=== PATIENT | female | born 1940 ===

== ENCOUNTER 2020-09-24 14:41 | Outpatient (REF) | payer SELFPAY ==
--- NOTE | ~2020-09-24 | XR_ITS ---
EXAMINATION: XR FOOT, RIGHT CLINICAL INFORMATION: Question bunion. COMPARISON: None TECHNIQUE: AP, lateral, and oblique views of the right foot. FINDINGS: There is bony demineralization. There is a hallux valgus configuration. There is a large bunion of the first metatarsal head. There is moderate osteoarthritic change of the first metatarsophalangeal joint. There is a hammertoe deformity of the second toe, which obliquely overlaps the great toe dorsally. No fracture, dislocation or right ankle joint effusion is seen. Boehler's angle is normal in there are small posterior and plantar calcaneal spurs. There are degenerative changes of the midfoot. The soft tissue planes are unremarkable, without foreign body or gas. XR/XR foot RT min 3V IMPRESSION: 1. There is a hallux valgus configuration. A large bunion is seen of the right first metatarsal head. 2. A hammertoe deformity is seen of the right second toe, which obliquely overlaps the great toe dorsally. 3. No fracture, dislocation or right ankle joint effusion is seen. 4. There are small calcaneal spurs. 5. There are degenerative changes of the midfoot. 6. There is bony demineralization.
--- NOTE | ~2020-09-24 | XR_ITS ---
EXAMINATION: XR KNEE, LEFT CLINICAL INFORMATION: Pain status-post fall. COMPARISON: None TECHNIQUE: AP, lateral, tunnel, and sunrise views of the left knee. FINDINGS: There is mild bony demineralization. The lateral and medial joint space compartments are well-maintained. There is mild narrowing of the patellofemoral compartment, most pronounced laterally. No fracture or dislocation is seen. There is minimal peripheral osteophyte formation of the lateral and medial joint space compartments, and mild peripheral osteophyte formation of the patellofemoral compartment. There is a small joint effusion. No foreign body is seen. XR/XR knee LT 4V IMPRESSION: 1. There is very mild tricompartment osteoarthritic change, most pronounced of the patellofemoral compartment. 2. There is a small joint effusion.
== END 2020-09-24 14:42 | disposition home or self-care (01) ==
LOC: HO.XRAY 14:41
PROVIDERS: PCP Internal Medicine; Visit Provider Internal Medicine
DX: M25.562 Pain in left knee (principal); M21.612 Bunion of left foot; Z91.81 History of falling
CPT/HCPCS: 73564; 73630

== ENCOUNTER 2020-12-16 13:58 | Outpatient (REF) | payer MEDICARE, SELFPAY ==
--- NOTE | ~2020-12-16 | MM_ITS ---
EXAMINATION: MM DIAGNOSTIC DIGITAL BREAST TOMOSYNTHESIS, BILATERAL CLINICAL INFORMATION: Due for yearly. 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 COMPARISON: Mammography: 11/16/2019 (needle localization); 11/01/2019, 10/30/2019, 10/19/2019 (baseline). TECHNIQUE: Digital breast tomosynthesis is performed in both the craniocaudal and mediolateral oblique views along with computer-aided detection (CAD). Synthesized 2D images are generated from the tomosynthesis. Additional magnification right CC and magnification right ML views are obtained. FINDINGS: There are scattered areas of fibroglandular density (ACR BI-RADS breast composition Category b). There are post therapy changes right breast with mild reduced breast size and scarring upper outer quadrant. Small oil cyst is present near the edge of the scar medial side on CC view. The left breast is stable from prior exam. There is no developing density or interval mass or architectural abnormality. No abnormal calcifications. Results are provided to the patient at time of visit by the technologist. MM/MM tomosynthesis diagnostic BI IMPRESSION: No mammographic evidence of malignancy. Post therapy changes right breast. ASSESSMENT: BI-RADS 2: Benign RECOMMENDATION: Annual bilateral mammography. This patient's information was entered into a reminder system with a target due date for their next mammogram.
== END 2020-12-16 13:59 | disposition home or self-care (01) ==
LOC: HO.MAMMO 13:58
PROVIDERS: Visit Provider Surgery
DX: C50.411 Malignant neoplasm of upper-outer quadrant of right female breast (principal)
CPT/HCPCS: 77062; 77066

== ENCOUNTER 2020-12-25 11:02 | Outpatient (REF) | payer MEDICARE, SELFPAY ==
[2020-12-25 13:34] LABS: MANUAL DIFF FLAG NO
[2020-12-25 13:44] LABS: Basophils Percent Auto 0.4 % (0-2); Eosinophils Absolute Auto 0.1 X10*3/uL (0.0-0.4); Eosinophils Percent Auto 2.8 % (0-4); Hematocrit 37.4 % (37-47); Hemoglobin 12.3 g/dl (12.0-16.0); Imm Gran Abs Auto 0.01 X10*3/uL (0.00-0.03); Imm Gran Pct Auto 0.2 % (0.0-0.4); Lymphocytes Absolute Auto 1.8 X10*3/uL (1.2-4.9); Lymphocytes Percent Auto 36.9 % (20-40); Mean Corpuscular HGB Conc 32.9 g/dl (31.0-35.0); Mean Corpuscular Hemoglobin 31.7 pg (27.0-33.0); Mean Corpuscular Volume 96.4 fL (80-98); Mean Platelet Volume 11.7 fL (9.4-12.3); Monocytes Absolute Auto 0.6 X10*3/uL (0.1-1.2); Monocytes Percent Auto 11.6 % (2-11); Neutrophils Absolute Auto 2.4 X10*3/uL (2.0-8.3); Neutrophils Percent Auto 48.1 % (45-73); Platelet Count 179 X10*3/uL (160-400); Red Blood Count 3.88 X10*6/uL (4.20-5.50); Red Cell Distribution Width 14.1 % (11.0-16.0)
[2020-12-25 14:21] LABS: Alanine Aminotransferase 15 U/L (0-31); Albumin Level 4.1 g/dL (3.5-5.0); Alkaline Phosphatase 71 U/L (39-117); Anion Gap 9 (12-20); Aspartate Amino Transferase 28 U/L (5-31); Bilirubin Total 0.7 mg/dL (0.0-1.0); Blood Urea Nitrogen 14 mg/dL (9-16); Calcium 9.8 mg/dL (8.4-10.2); Carbon Dioxide 28 mmol/L (22-29); Chloride 107 mmol/L (96-108); Estimated Glomerular Filt Rate > 60; Glucose Random 87 mg/dL (60-115); Potassium 4.8 mmol/L (3.3-5.1); Sodium 139 mmol/L (135-145); Total Protein 8.2 g/dL (6.5-8.0)
[2020-12-25 14:41] LABS: Vitamin D 25-OH Total 19.7 ng/mL (>30)
== END 2020-12-25 11:03 | disposition home or self-care (01) ==
LOC: HO.10HDL 11:02
PROVIDERS: Visit Provider Internal Medicine
DX: Z13.89 Encounter for screening for other disorder (principal)
CPT/HCPCS: 36415; 80053; 82306; 85025

== ENCOUNTER → 2021-03-12 11:06 | Outpatient (BNVA) | payer MEDICARE, SELFPAY | PROVIDERS: Visit Provider Obstetrics & Gynecology | DX: N81.4 Uterovaginal prolapse, unspecified (principal) | CPT/HCPCS: 99202 ==

== ENCOUNTER → 2021-04-09 08:29 | Outpatient (BNVA) | payer MEDICARE, SELFPAY | PROVIDERS: Visit Provider Obstetrics & Gynecology | DX: N81.4 Uterovaginal prolapse, unspecified (principal) | CPT/HCPCS: 57160; 99212 ==

== ENCOUNTER → 2021-04-16 11:21 | Outpatient (BNVA) | payer MEDICARE, SELFPAY | PROVIDERS: Visit Provider Obstetrics & Gynecology | DX: N81.4 Uterovaginal prolapse, unspecified (principal) | CPT/HCPCS: 99212 ==

== ENCOUNTER 2021-12-31 10:14 | Outpatient (REF) | payer MEDICARE, SELFPAY ==
--- NOTE | ~2021-12-31 | MM_ITS ---
EXAMINATION: MM DIAGNOSTIC DIGITAL BREAST TOMOSYNTHESIS, BILATERAL CLINICAL INFORMATION: Status post right breast lumpectomy in 2020. COMPARISON: Mammography: 12/16/2020 and studies dating back to 10/19/2019. TECHNIQUE: Digital breast tomosynthesis is performed in both the craniocaudal and mediolateral oblique views along with computer-aided detection (CAD). Synthesized 2D images are generated from the tomosynthesis. Additional spot magnification views of the right breast in craniocaudal and 90 degree mediolateral views performed. FINDINGS: There are scattered areas of fibroglandular density (ACR BI-RADS breast composition Category b). There are post-surgical changes seen within the upper outer aspect of the right breast. About the deep central aspect of the right breast on initial craniocaudal view there was a grouping of calcifications. Further evaluation was performed after cleansing of the area and placement of a mole marker. The calcifications were noted to no longer be present. There is a stable parenchymal pattern of the left breast. Results are provided to the patient at time of visit by the technologist. MM/MM tomosynthesis diagnostic BI IMPRESSION: There are no significant changes from prior study. Stable post-surgical change. ASSESSMENT: BI-RADS 2: Benign. RECOMMENDATION: Routine annual mammography screening due in 12 months. This patient's information was entered into a reminder system with a target due date for their next mammogram.
== END 2021-12-31 10:15 | disposition home or self-care (01) ==
LOC: HO.MAMMO 10:14
PROVIDERS: PCP Internal Medicine; Visit Provider Internal Medicine
DX: Z98.890 Other specified postprocedural states (principal)
CPT/HCPCS: 77062; 77066

== ENCOUNTER 2024-01-12 13:03 | Emergency (ER) | payer MEDICARE, SELFPAY ==
[2024-01-12 13:13] VITALS: BP 139/71; PULSE 74; RESP 17; TEMP 36.6; O2SAT 98; BMI 21.8
--- NOTE | 2024-01-12 13:15 | ED.SKABFB ---
HPI - Skin/Abscess/Foreign Bdy General Chief complaint: General Medical Stated complaint: neck rash Time Seen by Provider: 01/12/24 13:21 Source: patient, RN notes reviewed and old records reviewed Mode of arrival: ambulatory History of Present Illness ED Provider: Minoo Goss PA-C [facility] narrative: 83-year-old female with a past medical history of invasive ductal carcinoma of the right breast presenting to the ED complaining of pruritic rash to left side of neck x1 month. Has been using OTC medications without relief, and Benadryl at night. Denies new exposures including soap, lotion, detergent, known tick or insect bites, travel, new medication, SOB, throat closing sensation Related Data Home Medications ?Medication ?Instructions ?Recorded ?Confirmed calcium carbonate (Calcium 500) 500 mg PO DAILY 02/26/21 12/09/21 cholecalciferol (vitamin D3) 100 100 mcg PO DAILY 02/26/21 12/09/21 mcg (4,000 unit) capsule Previous Rx's ?Medication ?Instructions ?Recorded tamoxifen 10 mg tablet 20 mg (2 x 10 mg) PO DAILY #90 tabs 12/09/21 cetirizine 10 mg capsule (Zyrtec) 10 mg PO DAILY PRN allergy 01/12/24 symptoms #10 caps hydrocortisone 1 % topical cream 1 appl topical BID PRN rash #28.35 01/12/24 grams Allergies Allergy/AdvReac Type Severity Reaction Status Date / Time No Known Allergies Allergy Verified 01/12/24 13:16 [No Known Allergies*] Review of Systems Review of Systems: Yes all other systems are reviewed and are negative Constitutional: Constitutional: Reports as per [facility] Past Medical History Attestation statement: The following information was validated with the patient. Source: old records reviewed Medical History Hx of breast lump Osteoporosis Invasive ductal carcinoma of right breast Surgical History History of removal of both ovaries Social History Social History Housing: House Alcohol intake: former Patient Tobacco Use Status: Never used Tobacco service: No Current occupational status: disabled Physical Exam Vital Signs: Vital Signs: Last Vital Signs Temp 98 F 01/12/24 13:13 Pulse 74 01/12/24 13:13 Resp 17 01/12/24 13:13 BP 139/71 01/12/24 13:13 Pulse Ox 98 01/12/24 13:13 O2 Del Method Room Air 01/12/24 13:13 BMI result Body Mass Index 21.8 Const: General: cooperative, healthy appearing and no acute distress Orientation/consciousness: patient oriented x3 Limitations: no limitations HEENT: Head: Yes normal to inspection and Yes atraumatic Ears: hearing grossly normal bilaterally General nose exam: Normal external nose present Face and sinus: Yes normal facial exam Eyes: General: appearance normal, both eyes and all related structures EOM: EOMs intact bilaterally Neck: Neck: Yes normal visual inspection and Yes no meningeal signs Resp: Effort & Inspection: normal respiratory effort and no respiratory distress Cardio: Rate: regular rate : General: Yes no CVA tenderness Back/Spine/Pelvis: Back: no CVA tenderness Skin: Other: +dry skin/dermatitis noted to left side of neck. No erythema, ulcers or open lesions. No sloughing No mucous membrane/palm or sole involvement Wounds: no wounds Neuro: General: patient oriented x3, tone normal and no meningeal signs Cranial nerves: Yes CN's II-XII intact bilaterally Gait exam (Neuro): Normal gait present Extrem: General: Yes normal to inspection Medical Decision Making Medical Decision Making MDM Narrative: 83-year-old female with a past medical history of invasive ductal carcinoma of the right breast presenting to the ED complaining of pruritic rash to left side of neck x1 month. On exam vital signs stable, NAD, nontoxic appearing. Physical exam as noted above with dermatitis to left-sided neck. No sloughing. No evidence of cellulitis or abscess. No mucous membrane or palm/sole involvement. No evidence of SJS/TENS Plan: Topical hydrocortisone, Zyrtec, dermatology referral Please refer to course for remaining clinical decision making, interpretation of labs/imaging results, and discussions with consultants and/or family members. Results discussed with patient including worrisome signs and symptoms and strict return precautions, and when to return to the emergency department. They verbalized understanding and feel safe for discharge at this time. Differential Diagnosis Differential Diagnoses: The differential diagnosis associated with the presentation includes As above External Record Review External record reviewed: Inpatient record, Office record, Outpatient record, Prior outpatient labs, Prior outpatient radiology, Primary care record and Outside ED record Tests considered The following testing was considered but not selected: As above Prescription Management I considered prescription management with: Other Discharge Plan Discharge Clinical Impression: Dermatitis Patient Disposition: Home, Self-Care Instructions: Dermatitis (ED) Additional Instructions: Continue to use Benadryl at night, this will make you drowsy Use Zyrtec during the day this will not make you drowsy Apply topical hydrocortisone to rash only. Avoid application to your face, hands, feet, and genital region Please follow-up with dermatology Please remove her necklace as this is likely exacerbating her symptoms Prescriptions: New Zyrtec 10 mg capsule 10 mg PO DAILY PRN (Reason: allergy symptoms) Qty: 10 0RF hydrocortisone 1 % cream 1 appl topical BID PRN (Reason: rash) Qty: 28.35 0RF No Action calcium carbonate [Calcium 500] 500 mg calcium (1,250 mg) Tablet 500 mg PO DAILY Vitamin D3 100 mcg (4,000 unit) Capsule 100 mcg PO DAILY tamoxifen 10 mg Tablet 20 mg PO DAILY Qty: 90 3RF Referrals: [facility] [Outside] [facility] [Outside] Print Language: Tanzanian
--- OUTSIDE RECORDS SUMMARY | 2024-01-12 13:24 | XMS_ITS | Continuity of Care Document ---
[facility] Address [address], [address] [place] [address]- Care Team Providers Care Extrusion Technician Name Role Phone Not on Staff, PCP Primary Care Physician Unavail able Encounter [facility] Date(s): 08/15/21 - 10/08/21 [facility] [employer] [facility] [address], [address] [place] [address]- Attending Physician: Beth Pendleton MD Admitting Physician: Beth Pendleton MD Referring Physician: Noble Pizano MD
--- OUTSIDE RECORDS SUMMARY | 2024-01-12 13:24 | XMS_ITS | Continuity of Care Document ---
Author Organization [facility] Eleanor Munoz s [facility] Address [address] [place] [address], [address] [place] [address]- Care Team Providers Care Mechanical Assembler Name Role Phone Not on Staff, PCP Primary Care Physician Unavail able Encounter [facility] Date(s): 09/08/21 - 10/08/21 [facility] [address] [place] [address], [address] [place], [place] [address] Attending Physician: Bobby King Admitting Physician: Bobby King Referring Physician: Bobby King
[2024-01-12 13:30] VITALS: BP 139/71; PULSE 74; RESP 17; TEMP 36.6; O2SAT 98
== END 2024-01-12 13:30 | disposition home or self-care (01) ==
PROVIDERS: Emergency Provider Student in an Organized Health Care Education/Training Program
DX: L30.9 Dermatitis, unspecified (principal); R21 Rash and other nonspecific skin eruption
CPT/HCPCS: 99282; 99283

== ENCOUNTER 2024-03-31 09:58 | Emergency (ER) | payer MEDICARE, SELFPAY ==
[2024-03-31 10:41] VITALS: BP 152/83; PULSE 61; RESP 18; TEMP 36.6; O2SAT 99; BMI 19.4
--- NOTE | 2024-03-31 10:48 | ED_ITS ---
HPI - Skin/Abscess/Foreign Bdy General Chief complaint: Skin/Abscess/Foreign Body Stated complaint: rash on neck Time Seen by Provider: 03/31/24 10:44 Source: patient, old records reviewed and investment advisor Mode of arrival: ambulatory Limitations: no limitations History of Present Illness ED Provider: HARLEY GEORGES narrative: 83 yo female hx of breast cancer in remission, here with chronic rash on left upper neck that is shiny with peeling skin and itchy. No other symptoms. Has used cortisone in the past with relief but has not used it. no fevers, swelling or any other symptoms. Has not seen Derm. No lesions or pain associated. She states she cannot think of a trigger MD complaint: rash Onset (ago): month(s) (2+) Tetanus up to date: yes Location: neck Severity: mild Quality: pruritic Relieving factors: none Exacerbating factors: none Context: none Associated symptoms: denies other symptoms Related Data Home Medications ?Medication ?Instructions ?Recorded ?Confirmed calcium carbonate (Calcium 500) 500 mg PO DAILY 02/26/21 12/09/21 cholecalciferol (vitamin D3) 100 100 mcg PO DAILY 02/26/21 12/09/21 mcg (4,000 unit) capsule Previous Rx's ?Medication ?Instructions ?Recorded tamoxifen 10 mg tablet 20 mg (2 x 10 mg) PO DAILY #90 tabs 12/09/21 cetirizine 10 mg capsule (Zyrtec) 10 mg PO DAILY PRN allergy 01/12/24 symptoms #10 caps hydrocortisone 1 % topical cream 1 appl topical BID PRN rash #28.35 01/12/24 grams hydrocortisone 1 % topical cream 1 appl topical BID 10 days #28.4 03/31/24 grams Allergies Allergy/AdvReac Type Severity Reaction Status Date / Time No Known Allergies Allergy Verified 03/31/24 10:42 [No Known Allergies*] Review of Systems Review of Systems: Constitutional : No Fever, No Chills ENT/Mouth : No sore throat, No Rhinorrhea Eyes: No Eye Pain, No Swelling, No Redness Cardiovascular : No Chest Pain, No SOB Respiratory : No Cough, No Sputum Gastrointestinal : No Nausea, No Vomiting, No Diarrhea, No abdominal Pain Genitourinary : No Dysuria, No Hematuria Musculoskeletal : No joint pain, No Myalgias, No Joint Swelling Skin : No Skin Lesions, positive skin rash All other systems reviewed and are negative [facility] Past Medical History Attestation statement: The following information was validated with the patient. Source: old records reviewed Medical History Hx of breast lump Osteoporosis Invasive ductal carcinoma of right breast Surgical History History of removal of both ovaries Social History Social History Housing: House Alcohol intake: former Patient Tobacco Use Status: Never used Tobacco service: No Current occupational status: disabled Physical Exam Vital Signs: Vital Signs: Last Vital Signs Temp 98 F 03/31/24 10:41 Pulse 61 03/31/24 10:41 Resp 18 03/31/24 10:41 BP 152/83 H 03/31/24 10:41 Pulse Ox 99 03/31/24 10:41 O2 Del Method Room Air 03/31/24 10:41 BMI result Body Mass Index 19.4 Appearance: Alert. Oriented X3. No acute distress. Eyes: Pupils equal, round and reactive to light. ENT: Pharynx normal. Neck: no mass felt but L neck there is a shiny peeling rash that is the same skin tone and not warm no fluctuance she has normal ROM it is the crease between her neck and start of the thoracic area. CVS: Normal heart rate and rhythm. Pulses normal. Respiratory: No respiratory distress. Breath sounds normal. Abdomen: Soft and non-tender. Skin: Skin warm and dry. Normal skin color. . Extremities: No lower extremity edema. Neuro: Oriented X 3. No motor deficit. No sensory deficit. Medical Decision Making Medical Decision Making [facility] Narrative: 83 yo female hx of breast cancer in remission now here with scaling itching rash to left neck - at this time there is no signs of infection or mass and she has no systemic symptoms rash appears like a contact dermatitis given the fluctuating symptoms will refer to derm and start a course of topical steroids. Patient aware and agrees with the plan. Steward/Stewardess Room used for DC. Differential Diagnosis Differential Diagnoses: The differential diagnosis associated with the presentation includes dermatitis, allergy, eczema External Record Review External record reviewed: Outpatient record Prescription Management I considered prescription management with: Other Discharge Plan Discharge Clinical Impression: Contact dermatitis Qualifiers: Contact dermatitis type: unspecified Contact dermatitis trigger: unspecified trigger Qualified Code(s): L25.9 - Unspecified contact dermatitis, unspecified cause Patient Disposition: Home, Self-Care Instructions: Contact Dermatitis (ED) Additional Instructions: return for any worsening symptoms or fever please follow up with dermatology [facility] [place] [phone] or [facility] [place] [phone] NOTHING TOUCHING THAT PART OF THE NECK Prescriptions: New hydrocortisone 1 % cream 1 appl topical BID 10 Days Qty: 28.4 0RF No Action calcium carbonate [Calcium 500] 500 mg calcium (1,250 mg) Tablet 500 mg PO DAILY Vitamin D3 100 mcg (4,000 unit) Capsule 100 mcg PO DAILY tamoxifen 10 mg Tablet 20 mg PO DAILY Qty: 90 3RF Zyrtec 10 mg capsule 10 mg PO DAILY PRN (Reason: allergy symptoms) Qty: 10 0RF hydrocortisone 1 % cream 1 appl topical BID PRN (Reason: rash) Qty: 28.35 0RF Print Language: Belarusian
[2024-03-31 10:59] VITALS: BP 152/83; PULSE 61; RESP 18; TEMP 36.6; O2SAT 99
== END 2024-03-31 10:59 | disposition home or self-care (01) ==
PROVIDERS: Emergency Provider Emergency Medicine
DX: L25.9 Unspecified contact dermatitis, unspecified cause (principal); R21 Rash and other nonspecific skin eruption; Z85.3 Personal history of malignant neoplasm of breast
CPT/HCPCS: 99282; 99283

== ENCOUNTER 2024-05-31 10:26 | Emergency (ER) | payer MEDICARE, SELFPAY ==
[2024-05-31 10:48] VITALS: BP 145/68; PULSE 56; RESP 20; TEMP 37; O2SAT 97; BMI 19.1
== END 2024-05-31 20:10 | disposition left against medical advice (07) ==
PROVIDERS: Emergency Provider Emergency Medicine
DX: R21 Rash and other nonspecific skin eruption (principal)
CPT/HCPCS: 99281